=== PATIENT | male | born 1955 | race Caucasian/White ===

== ENCOUNTER 2016-06-26 07:04 | Day surgery (SDC) | payer BC ==
[~2016-06-26] VITALS: Ht 177.8 cm; Wt 93.4 kg
[~2016-06-26 07:04] MED LIST: ERYTHROMYCIN B500 MG PO; FEOSOL45 MG PO; LUPRON5 MG/M1 SC; MULTIPLE VITAMI1 CAP PO; NEOMYCIN SULFA500 MG PO; PREDNISONE20 MG; RANITIDINE 7575 MG PO; ST. JOSEPH81 M2 PO; TAXOTERE IV; VITAMIN C PUR1000 MG PO; VITAMIN C500 MG PO
[2016-06-26] MEDS ORDERED: SYNTHROID0.05 MG/TA PO (07:19)
[2016-06-26 07:20] VITALS: BP 132/91; PULSE 64; TEMP 97.7
[2016-06-26 09:10] VITALS: BP 108/80; PULSE 66; TEMP 97.6
[2016-06-26 09:25] VITALS: BP 101/89; PULSE 76
[2016-06-26 09:40] VITALS: BP 109/75; PULSE 63
== END 2016-06-26 09:45 | disposition home or self-care (01) ==
LOC: SDCO 07:04
DX: Z86.010 Personal history of colon polyps (principal); K63.5 Polyp of colon; K64.0 First degree hemorrhoids
CPT/HCPCS: OP; J2250; J3010; J7030

== ENCOUNTER 2021-08-02 07:00 | Day surgery (SDC) | payer MEDICARE ==
[~2021-08-02] VITALS: Ht 177.8 cm; Wt 90.9 kg
[~2021-08-02 07:00] MED LIST changes: +SYNTHROID0.05 MG/TA PO
[2021-08-02 07:15] VITALS: BP 125/90; PULSE 63; TEMP 97.2
[2021-08-02] MEDS ORDERED: SYNTHROID0.075 MG/T PO (07:18)
[2021-08-02] MEDS ORDERED: PHARMASSURE ZIN50 MG PO (07:18)
[2021-08-02] MEDS ORDERED: MASON NATURAL2000 IU PO (07:19)
[2021-08-02] MEDS ORDERED: IRON TABLETS325 MG PO (07:19)
[2021-08-02] MEDS ORDERED: METAMUCIL3.4 GM/DOS PO (07:20)
[2021-08-02 09:00] VITALS: BP 103/73; PULSE 66; TEMP 97.2
--- NOTE | 2021-08-02 09:00 | NUR ---
The patient arrived from the endo suite, drowsy but oriented. The patient ambulated from the cart to the chair without difficulty. Vitals obtained and are WNL. The patient is tolerating ice water well. Denies nausea and requested buttered wheat toast. Call knight is within reach. Will continue to monitor per intervals.
[2021-08-02 09:15] VITALS: BP 125/96; PULSE 53
--- NOTE | 2021-08-02 09:15 | NUR ---
Vitals obtained. Buttered wheat toast served. The patient is tolerating it well. Denies nausea. Call knight remains within reach.
[2021-08-02 09:30] VITALS: BP 126/88; PULSE 54
--- NOTE | 2021-08-02 09:30 | NUR ---
The patient states he has talked with the DR and expressed desire for discharge. Vitals obtained. IV discontinued. Catheter tip intact. Pressure dressing applied. No redness or swelling. The RN told the patient to use a warm compress to the site if he experiences discomfort. The patient verbalized understanding and denied needing assistance changing into his personal clothes. Call knight remains within reach.
--- NOTE | 2021-08-02 09:40 | NUR ---
DC instructions and educational material was reviewed with the patient and his . The patient verbalized understanding and signed the related paperwork. The patient was then [facility] [place]. The patient has his belongings and the DC packet in hand. The patient was transferred into the care of his , who is present to drive.
== END 2021-08-02 09:40 | disposition home or self-care (01) ==
LOC: SDCO 07:00
DX: Z12.11 Encounter for screening for malignant neoplasm of colon (principal); K57.30 Diverticulosis of large intestine without perforation or abscess without bleeding; Z86.010 Personal history of colon polyps; Z98.890 Other specified postprocedural states
CPT/HCPCS: J2704; J7030